=== PATIENT | female | born 1950 | race Caucasian/White ===

== ENCOUNTER → 2017-09-03 | Outpatient (REF) | payer MEDICARE ==
[~2017-09-03] MED LIST: ALB0.5 IH; ALB18R INH; ALBU8.5H IH; AMLO-99 PO; ASPI-1471 PO; ATOR40TA24 PO; AZIT-17 PO; BENZ100C4 PO; BENZ200C15 PO; CETI-169 PO; CETI10CA8 PO; FERR325T24 PO; FLUO40CA76 PO; FLUT1DIS28 IH; GUAI120L3 PO; HYDR-317 PO; LOSA50TA72 PO; PRED20TA6 PO; TRAZ-156 PO
[2017-09-03 12:52] LABS: PLATELET COUNT, AUTOMATED 167 K/uL (150-450)
== END ==
PROVIDERS: ATTEND Physician Assistant Medical
DX: R10.9 Unspecified abdominal pain (principal)
CPT/HCPCS: 82040; 82247; 82310; 82374; 82435; 82565; 82947; 83690; 84075; 84132; 84155; 84295; 84450; 84460; 84520; 85025

== ENCOUNTER → 2017-09-04 | Outpatient (REF) | payer MEDICARE | PROVIDERS: ATTEND Physician Assistant Medical | DX: R10.9 Unspecified abdominal pain (principal) | CPT/HCPCS: 87045; G0328; 82274 ==

== ENCOUNTER → 2017-09-08 | Outpatient (CLI) | payer MEDICARE ==
[~2017-09-08] MED LIST changes: +CHOL500016 PO; +LACT1CAP6 PO
== END ==
LOC: LAB 16:16
PROVIDERS: ATTEND Nurse Practitioner Family
DX: R19.7 Diarrhea, unspecified (principal); R10.9 Unspecified abdominal pain
CPT/HCPCS: 87045; 87324; 87338; 87449

== ENCOUNTER → 2017-09-09 | Outpatient (CLI) | payer MEDICARE ==
[~2017-09-09] MED LIST changes: +IOPAMIDOL 76% 75 ML INFUS BTL 75 ML ONE; +NS 0.9% 50 ML VIAL 50 ML ONE
--- NOTE | 2017-09-09 13:04 | RADIOLOGY IMAGING REPORT ---
FACILITY: [facility] - [place] PATIENT NAME: Gayle Gresham : 1950 MR: [id number] V: [id number] EXAM DATE: ORDERING PHYSICIAN: ABIEL AGEE TECHNOLOGIST: Location: [facility] - [place] Patient: Gayle Gresham : 1950 Visit/Account:[id number] Date of Sevice: 09/09/2017 Ultrasound soft tissue head neck: HISTORY: Left supraclavicular mass. Noted since May 2017. COMPARISON: None. FINDINGS: Sonographic evaluation was performed in the left supraclavicular region. There is no focal cystic or solid mass. There is no adenopathy. Right side was scanned for comparison, no abnormalit ies are seen. IMPRESSION: No sonographic abnormality in the left supraclavicular region to account for the supracla vicular mass. If there is ongoing concern, CT scan could be considered. Report Dictated By: Nila Guardado MD at 09/09/2017 12:53 PM Report E-Signed By: Nila Guardado MD at 09/09/2017 12:59 PM WSN:[id number]
--- NOTE | 2017-09-09 13:31 | RADIOLOGY IMAGING REPORT ---
[place] [facility] [place] Gayle Gresham : 1950 MR: [id number] V: [id number] EXAM DATE: ORDERING PHYSICIAN: ABIEL AGEE TECHNOLOGIST: Location: [facility] Patient: Gayle Gresham : 1950 Visit/Account:[id number] Date of Sevice: 09/09/2017 ABDOMEN/PELVIS W/WO CONTRAST HISTORY: abd pain / diarrhea TECHNIQUE: Axial images acquired through the abdomen/pelvis both with and without IV contrast.. Eugenie nal and sagittal reformatting also performed. Dose Lowering Technique One of the following dose optimization techniques was utilized in the performance of this exam: Autom ated exposure control; adjustment of the mA and/or kV according to the patient's size; or use of an i terative reconstruction technique. Specific details can be referenced in the facility's radiology C T exam operational policy. CONTRAST: 75 mL Isovue-370 COMPARISON: CTA chest April 20, 2016 FINDINGS: Visualized lung bases: Negative. Hepatobiliary: There is a 6 mm slightly hyperdense nodular area projecting from the outer wall of th e anteromedial gallbladder of uncertain etiology. This does however appear stable when compared the prior study Spleen: Negative. Adrenals: Negative. Pancreas: Negative. Kidneys ureters and bladder: There are small subcentimeter hypodensity upper pole the left kidney lik concepcion a cyst although too small to characterize Genitalia: Uterus appears atrophic. The endometrium is indistinctly seen although appears to be thi ckened at 1.1 cm. GI: The appendix is visualized and does not appear inflamed. There is no evidence of bowel wall thi ckening or bowel distention. . There appears to be thickening of the lower esophagus. Vessels/spaces/nodes: Extensive vascular ossifications are seen throughout the abdomen and pelvis . Collateral vessels are seen around the stomach in the lower esophagus possibly representing varices Bones/soft tissues: There are moderate spondylotic changes lumbar spine. There is a moderate compre ssion fracture of L1. This has advanced when compared to the prior CT of the chest Additional findings: None pertinent. IMPRESSION: There is thickening of the lower esophagus. There is no evidence of bowel distention or bowel wall t hickening throughout the remainder the study Extensive vascular calcifications Collateral vessels are seen adjacent to the stomach and lower esophagus which may represent varices This a 6 mm slightly hyperdense nodular area projecting from the outer wall the anteromedial gallblad rahel of uncertain etiology. This does appear stable however when compared the prior study The uterus appears atrophic. The endometrium is indistinct although appears to be thickened at 1.1 c m which is abnormal for postmenopausal woman. Pelvic ultrasound recommended Moderate compression fracture of L1 is advanced when compared to the prior CT Report Dictated By: Mindy Cohen MD at 09/09/2017 1:04 PM Report E-Signed By: Mindy Cohen MD at 09/09/2017 1:28 PM WSN:[email or web address]
== END ==
LOC: CT 06:46
PROVIDERS: ATTEND Nurse Practitioner Family
DX: K22.8 Other specified diseases of esophagus (principal); N85.8 Other specified noninflammatory disorders of uterus
CPT/HCPCS: 76999; J7050; Q9967

== ENCOUNTER → 2017-09-25 | Outpatient (CLI) | payer MEDICARE ==
[~2017-09-25] MED LIST changes: +GOLYTE PO; -IOPAMIDOL 76% 75 ML INFUS BTL 75 ML ONE; -NS 0.9% 50 ML VIAL 50 ML ONE; +OMEP-125 PO; +OMEP40CA48 PO
== END ==
LOC: RESP 20:49
PROVIDERS: ATTEND Nurse Practitioner Family
DX: G47.33 Obstructive sleep apnea (adult) (pediatric) (principal); G47.61 Periodic limb movement disorder; G47.36 Sleep related hypoventilation in conditions classified elsewhere; E66.9 Obesity, unspecified

== ENCOUNTER → 2017-10-17 | Outpatient (CLI) | payer MEDICARE ==
--- NOTE | 2017-10-17 14:18 | RADIOLOGY IMAGING REPORT ---
FACILITY: [facility] [place] PATIENT NAME: GUZMAN CORTÉS : [id number] MR: [id number] V: [id number] EXAM DATE: [id number] ORDERING PHYSICIAN: ABIEL AGEE TECHNOLOGIST: Tanya Sung PROCEDURE:BILATERAL DIGITAL SCREENING MAMMOGRAM WITH CAD ASSISTED INTERPRETATION & 3D TOMOSYNTHESIS COMPARISON:This is a baseline mammogram. INDICATIONS:SCREENING/ASYMPTOMATIC VIEWS OBTAINED: Bilateral 2D full field CC & MLO & corresponding 3D tomography TISSUE DENSITY: Heterogeneously dense, which may obscure small masses. FINDINGS: There are numerous benign appearing coarse calcifications in both breasts. There are no mammographic findings suspicious for malignancy. DIAGNOSTIC CATEGORY 2--BENIGN FINDING. RECOMMENDATIONS: ROUTINE ANNUAL SCREENING BILATERAL MAMMOGRAM. IMPRESSION: BIRADS 2: Benign finding Dictated by: María Schwarz M.D. on 10/17/2017 at 11:06 Transcribed by: MARCIN on 10/17/2017 at 13:05 Approved by: María Schwarz M.D. on 10/17/2017 at 14:18 [facility]
== END ==
LOC: MAMO 02:56
PROVIDERS: ATTEND Nurse Practitioner Family
DX: Z12.31 Encounter for screening mammogram for malignant neoplasm of breast (principal); R92.1 Mammographic calcification found on diagnostic imaging of breast
CPT/HCPCS: 77063; 77067

== ENCOUNTER → 2017-10-24 | Outpatient (CLI) | payer MEDICARE ==
[~2017-10-24] MED LIST changes: +ALBU2.5V36 INH; +TRAZ150T8 PO; +[UNRECOGNIZED DRUG - OTHER]
== END ==
LOC: RESP 20:54
PROVIDERS: ATTEND Nurse Practitioner Family
DX: G47.33 Obstructive sleep apnea (adult) (pediatric) (principal); G47.37 Central sleep apnea in conditions classified elsewhere; G47.61 Periodic limb movement disorder; G47.36 Sleep related hypoventilation in conditions classified elsewhere; E66.9 Obesity, unspecified

== ENCOUNTER 2017-10-29 00:49 | Day surgery (SDC) | payer MEDICARE ==
[~2017-10-29] VITALS: Ht 149.9 cm; Wt 77.1 kg
[~2017-10-29 00:49] MED LIST changes: -[UNRECOGNIZED DRUG - OTHER]
[2017-10-29] MEDS ORDERED: MIDAZOLAM 2 MG/2 ML VIAL IVP ONE (09:30)
[2017-10-29] MEDS ORDERED: NORMOSOL R SOLN(*) 1000 ML BAG 1,000 ML IV PRN (09:30)
[2017-10-29] MEDS ORDERED: LIDOCAINE/SOD BICARB 8.4% SYR ID ONE (09:30)
[2017-10-29 09:35] VITALS: BP 141/65
[2017-10-29 11:39] VITALS: BP 120/63
--- NOTE | 2017-10-29 11:44 | Short(Outpt) Discharge Summary ---
Discharge Summary Reason for Hosp/Final Diag: (1) Colon cancer screening Status: Chronic Hospital Course & Plan: EGD with biopsies and colonoscopy with polypectomy x4 completed without problems. (2) Dysphagia Status: Chronic (3) GERD (gastroesophageal reflux disease) Status: Chronic Departure Discharge to: Home, Self Care Discharge Instructions Home Meds Active Scripts Peg/Electrolytes (GOLYTELY SOLUTION) 4,000 Ml Soln, 1 GAL PO ONCE, #1 GAL 0 Refills Prov:LON NEGRON MD 09/30/17 Omeprazole (OMEPRAZOLE) 40 Mg Capsule.dr, 1 CAP PO BID, #60 CAP 3 Refills Prov:LON NEGRON MD 09/30/17 Fluticasone/Salmeterol (ADVAIR 250-50 DISKUS) 1 Each Disk.w.dev, 1 PUFF IH BID, #3 DISK 3 Refills Prov:ABIEL AGEE APRNP-C 09/08/17 Amlodipine Besylate (AMLODIPINE BESYLATE) 10 Mg Tablet, 1 TAB PO QDAY, #90 TAB 3 Refills Prov:ABIEL AGEE APRNP-C 09/08/17 Fluoxetine Hcl (PROZAC) 40 Mg Capsule, 1 TAB PO QDAY, #90 CAPSULE 1 Refill Prov:ABIEL AEGE APRN-C 09/08/17 Losartan Potassium (LOSARTAN POTASSIUM) 50 Mg Tablet, 1 TAB PO BID, #180 TAB 3 Refills Prov:ABIEL AGEE APRNP-C 09/08/17 Atorvastatin Calcium (LIPITOR) 40 Mg Tablet, 1 TAB PO QDAY, #90 TAB 3 Refills Prov:ABIEL AGEE APRNP-C 09/08/17 Reported Medications Albuterol Sulfate 0.083% (ALBUTEROL SULFATE 0.083%) 2.5 Mg/3 Ml Vial.neb, 2.5 MG INH QID Y for SHORTNESS OF BREATH, INH 10/22/17 Trazodone Hcl (TRAZODONE HCL) 150 Mg Tablet, 150 MG PO QHS 10/22/17 Cholecalciferol (Vitamin D3) (VITAMIN D3) 5,000 Unit Capsule, 1 CAP PO DAILY, CAPSULE 09/08/17 Lactobacillus Combination No.4 (PROBIOTIC) 1 Each Capsule, 1 EACH PO DAILY, CAPSULE 09/08/17 Albuterol Sulfate (VENTOLIN HFA) 18 Gm Inh, 2 PUFF INH Q4H, INH 09/05/17 Aspirin (ASPIR 81) 81 Mg Tablet.dr, 1 TAB PO QDAY, TAB 09/05/17 Discontinued Scripts Trazodone Hcl (TRAZODONE HCL) 50 Mg Tablet, 1 TAB PO QHS, #90 TAB 1 Refill Prov:ABIEL AGEE APRN TAXICAB DRIVER-C 09/08/17 Follow up Referrals: General Surgery - 11/11/17 @ Surgery, General with Lon Negron Md You have a follow up appointment scheduled with Dr. Negron on 11/11/17, at 11: 30am. Diet: Regular Activity: As Tolerated Special Instructions: Your endoscopy procedures were completed without problems. I biopsied your stomach and small intestine and dilated your esophagus and I removed 4 polyp from your colon. I will discuss all these results with you when I see you back in my office on 11/11/17. Problem Qualifiers (1) Dysphagia: Dysphagia type: oropharyngeal phase Qualified Codes: R13.12 - Dysphagia, oropharyngeal phase (2) GERD (gastroesophageal reflux disease): Esophagitis presence: without esophagitis Qualified Codes: K21.9 - Gastro- esophageal reflux disease without esophagitis LON NEGRON MD Oct 29, 2017 11:44
[2017-10-29 11:45] VITALS: BP 105/53
[2017-10-29 12:09] VITALS: BP 131/69
[2017-10-29 12:12] VITALS: BP 127/66
[2017-10-29] MEDS ORDERED: PROPOFOL(*)1000 MG/100 ML VIAL 100 ML ONE (12:37)
== END 2017-10-29 12:55 | disposition home or self-care (01) ==
LOC: OR 00:49
PROVIDERS: ATTEND Surgery
DX: K22.2 Esophageal obstruction (principal); K63.5 Polyp of colon; K62.1 Rectal polyp
CPT/HCPCS: 00811; 36415; 43239; 43248; 45385; 83516; 87077; 88305; J2704

== ENCOUNTER → 2017-11-11 | Outpatient (CLI) | payer MEDICARE ==
[~2017-11-11] MED LIST changes: +[UNRECOGNIZED DRUG - OTHER]
--- NOTE | 2017-11-12 17:17 | RADIOLOGY IMAGING REPORT ---
FACILITY: [facility] PATIENT NAME: GUZMAN CORTÉS : [id number] MR: [id number] V: [id number] EXAM DATE: ORDERING PHYSICIAN: ABIEL AGEE TECHNOLOGIST: David Alfaro EXAMINATION:TWO-DIMENSIONAL ECHOCARDIOGRAPH REASON:MURMUR 2D Measurements (normal values in centimeters) LV endLV endRV endVent.LV PostAorticLeftPercent DiastolicSystolicDiastolicSeptumWallRootAtriumShortening (3.5-5.7)(0.9-2.6)(0.6-1.1)(0.6-1.1)(2.0-3.7)(1.9-4.0)(25-35%) [id number]% STROKE VOLUME: 48ml ESTIMATED EJECTION FRACTION:71% PARASTERNAL LONG AXIS: Left ventricular systolic function does appear to be within normal ranges. The left atrium appears to be mildly enlarged. Aortic valve appears to be sclerotic & possibly stenotic. Minimal mitral annular calcification is noted. PARASTERNAL SHORT AXIS: Overall left ventricular function again appears to be normal. No specific wall motion abnormalities are noted. The aortic valve difficult to define its configuration but probably trileaflet in configuration but it does appear to be stenotic & calcified. Color examination of the aortic valve revealed a trace of aortic insufficiency present. APICAL FOUR AND TWO CHAMBER: Again normal left ventricular ejection fraction. The aortic valve area was measured at 1.4cm2 with a mean pressure gradient across the valve of 12mm Hg indicating moderate aortic stenosis. Mitral valve area was measured within normal ranges at 2.3cm2. Left atrial volume was mildly increased at 31.5ml/m2. Right atrial volume measured within normal ranges at 8.7ml/m2. The tricuspid regurgitation Vmax measured at 3.0m/sec. Estimated right atrial pressure was 3mm Hg. SUBCOSTAL VIEW: Subcostal view was difficult to obtain but no pericardial effusion was noted. Definity contrast was used & no wall motion abnormalities were noted as well as no thrombi. Doppler examination of the mitral valve in diastole does reveal the A wave > E wave. IVC is normal in size. OVERALL IMPRESSION: 1. Normal left ventricular ejection fraction of 71% with a Grade 1/4 decrease in diastolic function. Definity contrast was used. 2. Mild left atrial enlargement with the other chamber sizes being normal but the right ventricle is the upper range of normal in size. The right atrium was normal in size. 3. A probable trileaflet aortic valve with heavy calcification. The valve area measures 1.4cm2 with a mean pressure gradient across the valve of 12mm Hg & a dimensionless index of .4 indicating moderate aortic stenosis. There is a trace of aortic insufficiency present. 4. Trace of mild amount of mitral insufficiency & pulmonic insufficiency & tricuspid insufficiency. No stenosis was noted in any of these valves. The estimated right ventricular systolic pressure is increased at 41mm Hg which does include an estimated right atrial pressure of 3mm Hg indicating mild pulmonary hypertension & increased right ventricular systolic pressures. Dictated by: Mahesh Villaseñor M.D. on 11/12/2017 at 8:52 Transcribed by: MARCIN on 11/12/2017 at 13:56 Approved by: Mahesh Villaseñor M.D. on 11/12/2017 at 17:16 [facility]
== END ==
LOC: RAD 10-02 02:34 → US 00:41
PROVIDERS: ATTEND Surgery
DX: I50.30 Unspecified diastolic (congestive) heart failure (principal); I51.7 Cardiomegaly; I25.10 Atherosclerotic heart disease of native coronary artery without angina pectoris; I35.2 Nonrheumatic aortic (valve) stenosis with insufficiency; I34.0 Nonrheumatic mitral (valve) insufficiency; I37.1 Nonrheumatic pulmonary valve insufficiency; I07.1 Rheumatic tricuspid insufficiency; I27.20 Pulmonary hypertension, unspecified
CPT/HCPCS: 93306

== ENCOUNTER → 2017-12-18 | Outpatient (CLI) | payer MEDICARE ==
[~2017-12-18] MED LIST changes: +REGADENOSON 0.4 MG/5 ML SYR ONE
--- NOTE | 2017-12-18 13:12 | RADIOLOGY IMAGING REPORT ---
FACILITY: [facility] - [place] PATIENT NAME: Gayle Gresham : 1950 MR: [id number] V: [id number] EXAM DATE: [id number] ORDERING PHYSICIAN: TONI HICKS TECHNOLOGIST: Location: [facility] - [place] Patient: Gayle Gresham : 1950 Visit/Account:[id number] Date of Sevice: 12/18/2017 EXAMINATION: Single isotope SPECT imaging with regadenoson infusion and gated SPECT imaging. DATE OF EXAMINATION: December 18, 2017. DATE OF INTERPRETATION: July 20, 2019. REQUESTING PHYSICIAN: TONI HICKS. INDICATION: The patient is a 67-year-old female evaluated for aortic valve abnormality. PROCEDURE: After informed consent the patient received an intravenous injection of 12.1 mCi of Tc-99 m sestamibi followed at an appropriate time interval by rest imaging. The patient then subsequently received an intravenous infusion of 0.4 mg of regadenoson per protocol without complication. Resting heart rate was 72 bpm with a peak heart rate of 88 bpm. Blood pressure at rest was 144 / 77 and fol lowing infusion was 151 / 66. Baseline EKG demonstrates sinus rhythm. There were no diagnostic EKG changes of ischemia following infusion. Symptoms were nonspecific. The patient then received an int ravenous injection of 30.4 mCi of Tc-99m sestamibi followed by stress imaging. RAW DATA: Examination of the summed raw data revealed a good quality study. MYOCARDIAL PERFUSION: The tomographic images demonstrate normal perfusion rest and stress. GATED IMAGES: The gated images demonstrate normal regional wall motion and thickening, LVEF 70%. IMPRESSION: 1. Nondiagnostic Lexiscan stress ECG 2. Normal myocardial perfusion scan. 3. Normal LV systolic function; LVEF 70%. Report Dictated By: Zack Cooper MD at 12/18/2017 1:05 PM Report E-Signed By: Zack Cooper MD at 12/18/2017 1:08 PM WSN:[id number]
== END ==
LOC: NUC 01:16
PROVIDERS: ATTEND Internal Medicine Cardiovascular Disease
DX: Q23.9 Congenital malformation of aortic and mitral valves, unspecified (principal); R07.9 Chest pain, unspecified
CPT/HCPCS: 78452; 93017; A9500; J2785

== ENCOUNTER → 2018-05-08 | Outpatient (CLI) | payer MEDICARE ==
[~2018-05-08] MED LIST changes: +AMLO-113 PO; -AMLO-99 PO; +FLUO60TA PO; -LOSA50TA72 PO; +LOSA50TA74 PO; -REGADENOSON 0.4 MG/5 ML SYR ONE; -TRAZ-156 PO; +TRAZ50TA34 PO
[2018-05-08 16:18] LABS: LDL CHOLESTEROL 26 mg/dl
== END ==
LOC: LAB 15:40
PROVIDERS: ATTEND Nurse Practitioner Family
DX: R73.01 Impaired fasting glucose (principal); E78.5 Hyperlipidemia, unspecified; I10 Essential (primary) hypertension
CPT/HCPCS: 36415; 82040; 82247; 82310; 82374; 82435; 82465; 82565; 82947; 83036; 83718; 84075; 84132; 84155; 84295; 84443; 84450; 84460; 84478; 84520

== ENCOUNTER → 2018-10-06 | Outpatient (CLI) | payer MEDICARE ==
[~2018-10-06] MED LIST changes: -AMLO-113 PO; +AMLO-127 PO; +AMOX-559 PO; +ATOR20TA65 PO; +CYCL-277 PO; +HYDR-385 PO; +LOSA100T75 PO; -LOSA50TA74 PO; +LOSA50TA80 PO
--- NOTE | 2018-10-06 09:50 | RADIOLOGY IMAGING REPORT ---
FACILITY: [facility] PATIENT NAME: Gayle Gresham : 1950 MR: [id number] V: [id number] EXAM DATE: ORDERING PHYSICIAN: ABIEL AGEE TECHNOLOGIST: Location: [facility] [place] Patient: Gayle Gresham : 1950 Visit/Account:[id number] Date of Sevice: 10/06/2018 DEXA Scan Clinical history: Osteopenia. Comparison: None available. LUMBAR SPINE: The bone mineral density (BMD) measured from L1-L4 correlates with a Z-score 1.0 and a T-score of -0. 1 which is Normal as defined by the World Health Organization. The corresponding risk of fracture in the lumbar spine is Not increased compared with a young adult reference population. HIP: Bone mineral density (BMD) measured in the Left total hip region correlates with a Z-score -0.3 and a T-score of -1.2 which is osteopenia as defined by the World Health Organization. The corresponding risk of fracture in the hip is increased between 2-3 times compared with a young adult reference popu latcount includes the [facility]. Bone mineral density (BMD) measured in the Femoral Neck region measures 0.748. g/cm2. T score of -2. 1. Osteopenia. Fracture risk increased over 4 times Impression: 1. Lumbar spine: Normal. 2. Left Total Hip: Osteopenia. 3. Femoral Neck: Bone Mineral Density is 0.748 g/cm2 . Osteopenia. The next DEXA scan of this patient should include the following sites: L1-L4 and the left hip. FRAX? WHO Fracture Risk Assessment Tool link: <http://www.shef.ac.uk/FRAX/tool.jsp?locationValue=9> PLEASE NOTE: 1) The World Health Organization defines low BMD as follows: T-score Normal > -1 Osteopenia < -1 and > -2.5 Osteoporosis < -2.5 without fractures Established osteoporosis < -2.5 with fractures 2) In general, you may wish to consider: Diagnosis Treatment Follow-up DEXA Normal BMD Prevention 2-3 years Osteopenia Prevention/therapy 1-2 years Osteoporosis Therapy Yearly 3) Fracture risk estimated from the T-score is more accurate for vertebral fractures (often spontane ous) than for hip fractures. Report Dictated By: Jay Pablo MD at 10/06/2018 9:44 AM Report E-Signed By: Jay Pablo MD at 10/06/2018 9:47 AM WSN:[email or web address]
--- NOTE | 2018-10-06 10:35 | RADIOLOGY IMAGING REPORT ---
FACILITY: [facility] [place]IENT NAME: Gayle Gresham : 1950 MR: [id number] V: [id number] EXAM DATE: ORDERING PHYSICIAN: ABIEL AGEE TECHNOLOGIST: Location: [facility] Patient: Gayle Gresham : 1950 Visit/Account:[id number] Date of Sevice: 10/06/2018 Exam type: L-SPINE 2 OR 3 VIEW History: Right lumbar, hip and SI pain Comparison: CT abdomen and pelvis September 09, 2017. Findings: There is a gentle levoconvex scoliosis lumbar spine with five lumbar type vertebral bodies present. There is straightening of normal lumbar lordosis which can be seen with muscle spasm. There is a mod erate approximate 40% compression fracture of L1 vertebral body that appears similar to the prior CT. Multilevel spondylotic changes throughout remainder the lumbar spine also appear similar to the pat or examination. Large anterior osteophytes at T9-10 are also stable. There are moderate vascular ca lcifications in the abdominal aorta IMPRESSION: 1. Moderate approximate 40% compression fracture of L1 vertebral body appears similar to the prior C T of September 09, 2017 Spondylotic changes lumbar spine also appear relatively stable Report Dictated By: Mindy Cohen MD at 10/06/2018 10:25 AM Report E-Signed By: Mindy Cohen MD at 10/06/2018 10:31 AM WSN:[email or web address]
--- NOTE | 2018-10-06 10:37 | RADIOLOGY IMAGING REPORT ---
FACILITY: [facility] PATIENT NAME: Gayle Gresham : 1950 MR: [id number] V: [id number] EXAM DATE: ORDERING PHYSICIAN: ABIEL AGEE TECHNOLOGIST: Location: [facility] Patient: Gayle Gresham : 1950 Visit/Account:[id number] Date of Sevice: 10/06/2018 Exam type: SACROILIAC JOINT < 3 VIEWS History: Right lumbar, hip and SI pain Comparison: CT abdomen and pelvis September 09, 2017. Findings: Three views of the SI joints demonstrates mild sclerotic changes along the inferior aspect of the rig ht SI joint that appear some are to the prior CT. There is no evidence of acute fracture seen involv ing the sacrum. IMPRESSION: 1. Mild sclerotic changes are seen along the inferior aspect the right SI joint that appears stable when compared to September 09, 2017 Report Dictated By: Mindy Cohen MD at 10/06/2018 10:31 AM Report E-Signed By: Mindy Cohen MD at 10/06/2018 10:32 AM WSN:[email or web address]
--- NOTE | 2018-10-06 10:38 | RADIOLOGY IMAGING REPORT ---
FACILITY: [facility] - [place] PATIENT NAME: Gayle Gresham : 1950 MR: [id number] V: [id number] EXAM DATE: ORDERING PHYSICIAN: ABIEL AGEE TECHNOLOGIST: Location: [facility] - [place] Patient: Gayle Gresham : 1950 Visit/Account:[id number] Date of Sevice: 10/06/2018 Exam type: HIP RIGHT History: Right lumbar, hip and SI pain Comparison: CT abdomen pelvis September 09, 2017. Findings: Two views of the right hip demonstrates no evidence of acute fracture dislocation, lytic or blastic l esion. No significant joint space narrowing is identified. Incidentally noted are extensive vascula r calcifications in the right thigh IMPRESSION: 1. No osteoarticular abnormality the right hip is seen Extensive vascular calcifications are noted in the right thigh Report Dictated By: Mindy Cohen MD at 10/06/2018 10:32 AM Report E-Signed By: Mindy Cohen MD at 10/06/2018 10:34 AM WSN:[email or web address]
== END ==
LOC: RAD 06:57
PROVIDERS: ATTEND Nurse Practitioner Family
DX: M48.56XD Collapsed vertebra, not elsewhere classified, lumbar region, subsequent encounter for fracture with routine healing (principal); M47.896 Other spondylosis, lumbar region; M85.88 Other specified disorders of bone density and structure, other site
CPT/HCPCS: 72100; 72200; 77080

== ENCOUNTER → 2018-10-15 | Outpatient (CLI) | payer MEDICARE ==
[~2018-10-15] MED LIST changes: +ALEN70TA43 PO; +CALC-29 PO
== END ==
LOC: LAB 13:34
PROVIDERS: ATTEND Nurse Practitioner Family
DX: I10 Essential (primary) hypertension (principal); M53.3 Sacrococcygeal disorders, not elsewhere classified; M85.80 Other specified disorders of bone density and structure, unspecified site
CPT/HCPCS: 36415; 82040; 82247; 82306; 82310; 82374; 82435; 82565; 82947; 84075; 84132; 84155; 84295; 84450; 84460; 84520; 85651; 86140

== ENCOUNTER → 2018-12-10 | Outpatient (CLI) | payer MEDICARE | LOC: LAB 14:47 | PROVIDERS: ATTEND Nurse Practitioner Family | DX: R31.9 Hematuria, unspecified (principal) | CPT/HCPCS: 81001; 87088 ==

== ENCOUNTER → 2018-12-11 | Outpatient (CLI) | payer MEDICARE | LOC: LAB 15:02 | PROVIDERS: ATTEND Nurse Practitioner Family | DX: R10.9 Unspecified abdominal pain (principal); R30.9 Painful micturition, unspecified | CPT/HCPCS: 81001 ==

== ENCOUNTER → 2019-01-11 | Outpatient (CLI) | payer MEDICARE ==
[~2019-01-11] MED LIST changes: +PRAZ1CAP26 PO
[2019-01-11 15:23] LABS: PLATELET COUNT, AUTOMATED 219 K/uL (150-450)
== END ==
LOC: LAB 14:49
PROVIDERS: ATTEND Nurse Practitioner Family
DX: R51 Headache (principal)
CPT/HCPCS: 36415; 82040; 82247; 82310; 82374; 82435; 82565; 82947; 84075; 84132; 84155; 84295; 84450; 84460; 84520; 85025; 85651; 86140

== ENCOUNTER → 2019-01-19 | Outpatient (CLI) | payer MEDICARE | LOC: LAB 08:11 | PROVIDERS: ATTEND Nurse Practitioner Family | DX: E83.52 Hypercalcemia (principal) | CPT/HCPCS: 36415; 82330; 83970 ==

== ENCOUNTER → 2019-03-19 | Outpatient (CLI) | payer MEDICARE, MEDICAID ==
[~2019-03-19] MED LIST changes: -OMEP-125 PO; +OMEP-126 PO; -TRAZ50TA34 PO; +TRAZ50TA52 PO
--- NOTE | 2019-03-19 15:17 | RADIOLOGY IMAGING REPORT ---
FACILITY: [facility] PATIENT NAME: Gayle Gresham : 1950 MR: [id number] V: [id number] EXAM DATE: ORDERING PHYSICIAN: TIAN ALBERTS TECHNOLOGIST: [place] [facility] [place]le [place] : 1950 Visit/Account:[id number] Date of Sevice: 03/19/2019 Thyroid Ultrasound HISTORY: Abnormal physical exam. Evaluate for thyroid nodules. COMPARISON: None. FINDINGS: SIZE: Normal. Right lobe: 3.2 x 0.8 x 0.9 cm Left lobe: 3.2 x 0.8 x 1.3 cm Isthmus: 2 mm PARENCHYMA: Heterogeneous. NODULES: Right lobe: * Hypoechoic, round nodule is seen in the anterior midportion of the right lobe and measures 3 mm x 3 mm x 3 mm * Hypoechoic nodule superiorly measures 5 mm x 7 mm x 4 mm Left lobe: * Hypoechoic nodule inferiorly measures 7 mm x 8 mm x 5 mm * Hypoechoic nodule within the anterior midpole measures 3 mm x 3 mm x 2 mm * Hypoechoic nodule anterior superior pole measures 3 mm x 5 mm x 2 mm Isthmus: * None discrete. VASCULARITY: Within normal limits. ADDITIONAL FINDINGS: None. IMPRESSION: 1. Small appearing thyroid gland with a heterogeneous echogenicity and echotexture which may be sequ raúl of prior thyroiditis. Correlate clinically. 2. Bilateral hypoechoic, solid nodules which are intermediate suspicion based on their appearance. These do not meet current criteria for FNA according to the [employer] guidelines. REFERENCE: 2015 [employer] Management Guidelines for Adult Patients with Thyroid Nodules and D ifferentiated Thyroid Cancer: The [employer] Guidelines Task Force on Thyroid Nodul es and Differentiated Thyroid Cancer. SONOGRAPHIC PATTERNS: * Benign: Purely cystic nodules (no solid component); estimated risk of malignancy <1 percent; no bi opsy recommended. * Very Low Suspicion: Spongiform or partially cystic nodules without any of the sonographic features described in low, intermediate, or high suspicion patterns; estimated risk of malignancy <3 percent; consider FNA at > 2 cm (Observation without FNA is also a reasonable option). * Low Suspicion: Isoechoic or hyperechoic solid nodule, or partially cystic nodule with eccentric so lid areas, without microcalcification, irregular margin or ETE (extra-thyroidal extension), or taller than wide shape; estimated risk of malignancy 5-10 percent; recommend FNA at >1.5 cm. * Intermediate Suspicion: Hypoechoic solid nodule with smooth margins without microcalcifications, E TE (extra-thyroidal extension), or taller than wide shape; estimated risk of malignancy 10-20 percent ; recommend FNA at > 1 cm. * High Suspicion: Solid hypoechoic nodule or solid hypoechoic component of a partially cystic nodule with one or more of the following features: irregular margins (infiltrative, microlobulated), microc alcifications, taller than wide shape, rim calcifications with small extrusive soft tissue component, evidence of ETE (extra-thyroidal extension); estimated risk of malignancy >70-90 percent; recommend FNA at > 1 cm. NOTES: * Although a sonographically suspicious subcentimeter thyroid nodule without evidence of extrathyroi ariela extension or sonographically suspicious lymph nodes may be observed with close sonographic follow -up rather than pursuing immediate FNA, patient age and preference may modify decision-making. A > 50% interval increase in nodule volume and/or development of new suspicious sonographic features are felt to be a valid reasons for potential re-aspiration of a nodule previously shown to have benig n FNA cytology. Report Dictated By: Rustam Nicholas at 03/19/2019 3:03 PM Report E-Signed By: Rustam Nicholas at 03/19/2019 3:09 PM WSN:[email or web address]
== END ==
LOC: US 03:43
PROVIDERS: ATTEND Otolaryngology
DX: E21.3 Hyperparathyroidism, unspecified (principal)
CPT/HCPCS: 76536

== ENCOUNTER → 2019-03-26 | Outpatient (CLI) | payer MEDICARE, MEDICAID ==
--- NOTE | 2019-03-26 15:03 | RADIOLOGY IMAGING REPORT ---
FACILITY: [facility] PATIENT NAME: Gayle Gresham : 1950 MR: [id number] V: [id number] EXAM DATE: ORDERING PHYSICIAN: TIAN ALBERTS TECHNOLOGIST: Location: [facility] - [place] Patient: Gayle Gresham : 1950 Visit/Account:[id number] Date of Sevice: 03/26/2019 Examination: Nuclear Medicine Parathyroid Scan Comparison: Ultrasound 03/19/2019. History: hyperparathyroidism Procedure: 28.9 mCi technetium 99m Sestamibi was injected intravenously. Multiplanar Gamma camera im ages were obtained of the head, neck and chest at 15 minutes and 3 hours following radiotracer admini stration with additional SPECT imaging at 3 hours. FINDINGS: 15 minute images: Normal uptake of tracer by the salivary glands, thyroid, myocardium, and visualize d upper abdomen. 3 hour images: Normal washout of tracer from the thyroid gland. No focal areas of abnormal radiotrac er uptake are identified in the neck or mediastinum. IMPRESSION: No scintigraphic findings of a parathyroid adenoma or ectopic parathyroid tissue. Report Dictated By: Humza Kwong MD at 03/26/2019 2:53 PM Report E-Signed By: Humza Kwong MD at 03/26/2019 2:55 PM WSN:[id number]
== END ==
LOC: NUC 01:34
PROVIDERS: ATTEND Otolaryngology
DX: E21.3 Hyperparathyroidism, unspecified (principal); R07.9 Chest pain, unspecified; Q23.9 Congenital malformation of aortic and mitral valves, unspecified
CPT/HCPCS: 78070; A9500

== ENCOUNTER → 2019-04-06 | Outpatient (CLI) | payer OTHER, MEDICAID ==
[~2019-04-06] MED LIST changes: +MAGN71.52 PO; +SERT-184 PO
--- NOTE | 2019-04-06 08:33 | EKG ---
FACILITY: [facility] PATIENT NAME: GUZMAN CORTÉS : [id number] MR: [id number] V: [id number] EXAM DATE: ORDERING PHYSICIAN: TIAN ALBERTS TECHNOLOGIST: CINDY Ramos Reason : PRE OP CLEARANCE Blood Pressure : / mmHG Vent. Rate : 067 BPM Atrial Rate : 067 BPM P-R Int : 144 ms QRS Dur : 076 ms QT Int : 474 ms P-R-T Axes : 053 039 060 degrees QTc Int : 500 ms Normal sinus rhythm Prolonged QT Abnormal ECG No previous ECGs available Confirmed by REKHA OSORIO ([id number]) on 04/07/2019 9:53:57 AM Referred By: ANUEL Confirmed By:REKHA OSORIO
[2019-04-06 08:50] LABS: PLATELET COUNT, AUTOMATED 208 K/uL (150-450)
== END ==
LOC: LAB 08:12
PROVIDERS: ATTEND Nurse Practitioner Family
DX: Z01.818 Encounter for other preprocedural examination (principal); I10 Essential (primary) hypertension; R94.31 Abnormal electrocardiogram [ECG] [EKG]; F32.9 Major depressive disorder, single episode, unspecified
CPT/HCPCS: 36415; 82040; 82247; 82310; 82374; 82435; 82565; 82947; 83735; 84075; 84132; 84155; 84295; 84443; 84450; 84460; 84520; 85025

== ENCOUNTER → 2019-04-15 | Outpatient (CLI) | payer OTHER, MEDICAID | LOC: LAB 13:05 | PROVIDERS: ATTEND Nurse Practitioner Family | DX: E83.42 Hypomagnesemia (principal) | CPT/HCPCS: 36415; 80320; 82040; 82247; 82310; 82374; 82435; 82565; 82947; 83735; 84075; 84132; 84155; 84295; 84450; 84460; 84520 ==

== ENCOUNTER → 2019-04-16 | Outpatient (CLI) | payer OTHER, MEDICAID | LOC: RESP 10:07 | PROVIDERS: ATTEND Nurse Practitioner Family | DX: Z02.9 Encounter for administrative examinations, unspecified (principal) ==